=== PATIENT | female | born 1995 | race Two or more races ===

== ENCOUNTER → 2021-05-01 08:01 | Outpatient (CLI) | payer OTHER | END | disposition home or self-care (01) | LOC: LAB 08:01 | PROVIDERS: ATTEND Family Medicine | DX: N91.5 Oligomenorrhea, unspecified (principal) ==

== ENCOUNTER → 2022-12-04 11:06 | Outpatient (CLI) | payer OTHER | END | disposition home or self-care (01) | LOC: LAB 11:06 | PROVIDERS: ATTEND General Practice | DX: E11.69 Type 2 diabetes mellitus with other specified complication (principal); I11.9 Hypertensive heart disease without heart failure; E66.9 Obesity, unspecified; E03.9 Hypothyroidism, unspecified; N39.9 Disorder of urinary system, unspecified; R19.5 Other fecal abnormalities ==

== ENCOUNTER → 2023-01-02 10:39 | Outpatient (CLI) | payer OTHER | END | disposition home or self-care (01) | LOC: LAB 10:39 | PROVIDERS: ATTEND General Practice | DX: J11.1 Influenza due to unidentified influenza virus with other respiratory manifestations (principal); U07.1 COVID-19; R50.9 Fever, unspecified ==

== ENCOUNTER → 2023-06-21 06:17 | Outpatient (CLI) | payer OTHER ==
[2023-06-21 07:46] LABS: HEMATOCRIT 38.1 % (36.0-45.00); HEMOGLOBIN 12.5 g/dL (12.0-15.00); MEAN CELL VOLUME 76.3 fL (80.00-100.00); MEAN CORPUSCULAR HEMOGLOBIN 25.1 pg (27.00-32.0); MEAN CORPUSCULAR HGB CONC 32.9 g/dl (32.0-36.0); PLATELET COUNT 205 K/uL (150-450); RED BLOOD COUNT 4.99 M/uL (4.00-6.00); RED CELL DISTRIBUTION WIDTH 15.2 % (11.5-14.5)
[2023-06-21 09:46] LABS: MYCOPLASMA PNEUMONIAE IGM NON REACTIVE (NO REACTIVE)
== END | disposition home or self-care (01) ==
LOC: LAB 06:17
PROVIDERS: ATTEND General Practice
DX: J11.1 Influenza due to unidentified influenza virus with other respiratory manifestations (principal); R07.1 Chest pain on breathing

== ENCOUNTER 2024-11-24 10:11 | Outpatient (CLI) | payer OTHER ==
[2024-11-24 11:01] LABS: HEMATOCRIT 41.2 % (36.0-45.00); HEMOGLOBIN 13.2 g/dL (12.0-15.00); MEAN CELL VOLUME 77.6 fL (80.00-100.00); MEAN CORPUSCULAR HEMOGLOBIN 24.8 pg (27.00-32.0); PLATELET COUNT 218 K/uL (150-450); RED BLOOD COUNT 5.31 M/uL (4.00-6.00)
[2024-11-24 11:43] LABS: MYCOPLASMA PNEUMONIAE IGM NON REACTIVE (NO REACTIVE)
== END 2024-11-24 10:15 | disposition home or self-care (01) ==
LOC: LAB 10:11
PROVIDERS: ATTEND General Practice
DX: J11.1 Influenza due to unidentified influenza virus with other respiratory manifestations (principal); R50.9 Fever, unspecified; U07.1 COVID-19; Z00.01 Encounter for general adult medical examination with abnormal findings; E66.9 Obesity, unspecified

== ENCOUNTER → 2025-01-30 07:39 | Outpatient (CLI) | payer OTHER ==
[~2025-01-30 07:39] MED LIST: AMOX-CLAV 875-1 EAC1
[2025-01-30 08:21] LABS: URINE APPEARANCE Clear; URINE BILIRRUBIN Negative (NEGATIVE); URINE BLOOD Negative; URINE COLOR Yellow; URINE GLUCOSE Negative (NEGATIVE); URINE KETONE Negative (NEGATIVE); URINE LEUKOCYTE Negative; URINE NITRATE Negative; URINE PROTEIN Negative (NEGATIVE); URINE UROBILINOGEN 0.2 E.U./dl
[2025-01-30 08:24] LABS: URINE BACTERIA 7.3 uL (0.0-1933); URINE EPITHELIAL CELLS 13.7 uL (0.0-38.8); URINE WBC 16.4 uL (0.0-23.2)
[2025-01-30 08:38] LABS: BASO % 0.6 % (0.1-1.2); EOS # 0.07 (0.04-0.54); EOS % 0.9 % (0.7-7.0); HEMATOCRIT 41.6 % (34.1-44.9); LYMPH # 2.77 (1.18-3.74); MEAN CORPUSCULAR HEMOGLOBIN 23.7 pg (25.6-32.2); MONO % 6.3 % (4.7-12.5); NEUT # 4.51 (1.56-6.13); NEUT % 56.9 % (34.0-71.1); PLATELET COUNT 304 K/uL (163-369); RED BLOOD COUNT 5.49 M/uL (3.93-5.22); RED CELL DISTRIBUTION WIDTH 15.7 % (11.6-14.4)
[2025-01-30 08:42] LABS: URINE RBC 1.3 uL (0.0-20.8)
[2025-01-30 08:58] LABS: ERYTHROCYTE SEDIMENTATION RATE 51 mm/hr (0-20)
[2025-01-30 09:14] LABS: ALBUMIN 3.5 gm/dL (3.4-5.0); BILIRUBIN TOTAL 0.48 mg/dL (0.3-1.2); CALCIUM 8.4 mg/dL (8.5-10.1); CREATININE SERUM 0.59 mg/dL (0.55-1.02); GFR 121.37; GLOBULINA 3.7 G/DL (2.4-3.5); POTASSIUM 4.03 mEq/L (3.5-5.1); T4 FREE 1.21 NG/ML (0.76-1.46); TOTAL PROTEIN 7.2 gm/dL (6.4-8.2); TSH 2.8 uIU/mL (0.358-3.74)
[2025-01-30 09:15] LABS: INR 0.96; PARTIAL THROMBOPLASTIN TIME 28.2 SECONDS (22.0-34.0); PROTHROMBIN TIME 10.5 SECONDS (9.0-11.5)
== END | disposition home or self-care (01) ==
LOC: LAB 07:39
PROVIDERS: ATTEND Internal Medicine
DX: D64.9 Anemia, unspecified (principal); E11.8 Type 2 diabetes mellitus with unspecified complications; I48.91 Unspecified atrial fibrillation; N39.0 Urinary tract infection, site not specified; E03.9 Hypothyroidism, unspecified; M35.1 Other overlap syndromes; E11.9 Type 2 diabetes mellitus without complications; E55.9 Vitamin D deficiency, unspecified; Z12.11 Encounter for screening for malignant neoplasm of colon; E78.2 Mixed hyperlipidemia

== ENCOUNTER 2025-01-30 08:03 | Emergency (ER) | payer OTHER ==
[~2025-01-30] VITALS: Ht 157.5 cm; Wt 108.9 kg
[2025-01-30] MEDS ORDERED: AMOX-CLAV 875-1 EAC1 (08:16)
[2025-01-30] MEDS ORDERED: FAMOTIDINE/PF 20 MG/2 ML VIAL IV ONE (09:15)
[2025-01-30 09:49] LABS: BASO % 0.5 % (0.1-1.2); EOS # 0.08 (0.04-0.54); EOS % 1.1 % (0.7-7.0); HEMATOCRIT 40.5 % (34.1-44.9); HEMOGLOBIN 12.7 g/dL (11.2-15.7); LYMPH # 2.34 (1.18-3.74); LYMPH % 31.2 % (19.3-53.1); MEAN CORPUSCULAR HEMOGLOBIN 23.9 pg (25.6-32.2); MONO % 6.7 % (4.7-12.5); NEUT # 4.54 (1.56-6.13); NEUT % 60.4 % (34.0-71.1); PLATELET COUNT 284 K/uL (163-369); RED BLOOD COUNT 5.31 M/uL (3.93-5.22); RED CELL DISTRIBUTION WIDTH 15.6 % (11.6-14.4)
[2025-01-30 10:19] LABS: ALBUMIN 3.4 gm/dL (3.4-5.0); BILIRUBIN TOTAL 0.44 mg/dL (0.3-1.2); CALCIUM 8.3 mg/dL (8.5-10.1); CREATININE SERUM 0.55 mg/dL (0.55-1.02); GFR 131.61; GLOBULINA 3.8 G/DL (2.4-3.5); POTASSIUM 3.97 mEq/L (3.5-5.1); TOTAL PROTEIN 7.2 gm/dL (6.4-8.2)
== END 2025-01-30 11:55 ==
LOC: ER 08:07
PROVIDERS: General Practice
DX: R10.9 Unspecified abdominal pain (principal)

== ENCOUNTER 2025-02-02 07:52 | Outpatient (CLI) | payer OTHER | END 2025-02-02 07:54 | disposition home or self-care (01) | LOC: RAD 07:52 | PROVIDERS: ATTEND Internal Medicine | DX: J01.90 Acute sinusitis, unspecified (principal) ==